=== PATIENT | male | born 1975 | race Caucasian/White ===

== ENCOUNTER → 2020-07-01 08:28 | Outpatient (POV) | payer OTHER, SELFPAY ==
[2020-07-01 10:40] LABS: Basophils % 0.3 % (0.1-2.0); Eosinophils % 0.1 % (0.1-12.0); Hematocrit 47.8 % (42.0-52.0); Hemoglobin 15.4 g/dL (14.1-18.0); Lymphocytes # 2.3 K/mm3 (0.7-4.5); Lymphocytes % 23.1 % (10-50); Mean Corpuscular HGB Conc 32.2 g/dL (31.8-35.4); Mean Corpuscular Hemoglobin 27.9 pg (27.0-31.2); Mean Corpuscular Volume 86.8 fl (80-94); Mean Platelet Volume 7.5 fl (7.4-10.4); Monocytes # 0.4 K/mm3 (0.1-1.0); Monocytes % 4.3 % (1.7-9.3); Neutrophils # 7.2 K/mm3 (1.8-7.8); Neutrophils % 72.2 % (37.0-80.0); Platelet Count 295 K/mm3 (142-424); Red Blood Count 5.51 M/mm3 (4.60-6.20); Red Cell Distribution Width 13.4 % (11.5-17.5); White Blood Count 9.9 K/mm3 (4.8-10.8)
[2020-07-01 10:50] LABS: Chloride 105 mmol/L (98-107)
[2020-07-01 10:51] LABS: Potassium 4.8 mmoL/L (3.5-5.1); Sodium 139 mmol/L (136-145)
[2020-07-01 10:53] LABS: Blood Urea Nitrogen 20 mg/dl (9-20); Estimated Glomerular Filt Rate 72 ml/min (>60); GFR (African American) 87 ML/MIN (>60)
[2020-07-01 10:54] LABS: Alanine Aminotransferase 30 U/L (12-78); Albumin/Globulin Ratio 1.8 (1.1-1.8); Alkaline Phosphatase 66 U/L (38-126); Anion Gap 10.8 mEq/L (5-15); Aspartate Amino Transferase 30 U/L (17-59); Bilirubin,Total 0.9 mg/dl (0.2-1.3); Calcium 10.3 mg/dl (8.4-10.2); Carbon Dioxide 28 mmol/L (22.0-30.0); Globulin 2.8 g/dL (1.3-3.2); Glucose 98 mg/dl (74-100); Iron 103 ug/dL (49-181); Total Protein,Serum 7.8 g/dl (6.3-8.2)
[2020-07-01 11:00] LABS: C-Reactive Protein 3.2 mg/L (0-4)
[2020-07-01 11:03] LABS: Total Iron Binding Capacity 337 ug/dL (261-462)
[2020-07-01 11:11] LABS: 25-OH Vitamin D, Total 28.3 ng/mL (30-100)
[2020-07-01 11:29] LABS: Ferritin 30.8 ng/ml (17.9-464)
[2020-07-01 12:30] LABS: Vitamin B12 895 pg/mL (239-931)
[2020-07-05 12:23] LABS: Calprotectin, Fecal 80 ug/g (0-120)
== END ==
PROVIDERS: Visit Provider Nurse Practitioner Family
DX: R10.11 Right upper quadrant pain (principal); K50.80 Crohn's disease of both small and large intestine without complications; K62.5 Hemorrhage of anus and rectum; R19.7 Diarrhea, unspecified; E55.9 Vitamin D deficiency, unspecified
CPT/HCPCS: 36415; 80053; 82306; 82607; 82728; 83540; 83550; 83993; 85025; 86140

== ENCOUNTER 2024-05-16 15:12 | Outpatient (CLI) | payer BC, SELFPAY ==
[2024-05-16 15:51] LABS: Basophils % 0.2 % (0.1-2.0); Hemoglobin 15.9 g/dL (14.1-18.0); Lymphocytes # 0.7 K/mm3 (0.7-4.5); Mean Corpuscular HGB Conc 33.1 g/dL (31.8-35.4); Mean Corpuscular Hemoglobin 28.2 pg (27.0-31.2); Mean Corpuscular Volume 85.3 fl (80-94); Mean Platelet Volume 10.1 fl (7.4-10.4); Monocytes # 0.1 K/mm3 (0.1-1.0); Monocytes % 0.6 % (1.7-9.3); Neutrophils # 8.2 K/mm3 (1.8-7.8); Platelet Count 317 K/mm3 (142-424); Red Blood Count 5.63 M/mm3 (4.60-6.20); Red Cell Distribution Width 13.1 % (11.5-17.5)
[2024-05-16 15:54] LABS: MANUAL DIFFERENTIAL MANUAL DIFFERENTIAL (MANUAL DIFF)
[2024-05-16 16:21] LABS: Erythrocyte Sedimentation Rate 1 mm/hr (0-15)
[2024-05-16 16:54] LABS: Albumin Level 4.8 g/dl (3.5-5.0); Chloride 101 mmol/L (98-107); Potassium 5.2 mmoL/L (3.5-5.1); Sodium 139 mmol/L (136-145)
[2024-05-16 16:55] LABS: Lymphocytes % 10 % (10-50); Neutrophils % 89 % (42-76); Platelet Estimate Normal; RBC Morphology Normal; Total Cells Counted 100
[2024-05-16 16:57] LABS: Alanine Aminotransferase 25 U/L (12-78); Alkaline Phosphatase 62 U/L (38-126); Anion Gap 13.2 mEq/L (5-15); Aspartate Amino Transferase 28 U/L (17-59); Bilirubin,Total 1.2 mg/dl (0.2-1.3); Blood Urea Nitrogen 24 mg/dl (9-20); Calcium 9.5 mg/dl (8.4-10.2); Carbon Dioxide 30 mmol/L (22.0-30.0); Estimated Glomerular Filt Rate 58 ml/min (>60); GFR (African American) 71 ML/MIN (>60); Globulin 2.4 g/dL (1.3-3.2); Glucose 112 mg/dl (74-100); Iron 171 ug/dL (49-181); Total Protein,Serum 7.2 g/dl (6.3-8.2)
[2024-05-16 17:05] LABS: C-Reactive Protein 17.1 mg/L (0-4)
[2024-05-16 17:07] LABS: Total Iron Binding Capacity 351 ug/dL (261-462)
[2024-05-16 17:34] LABS: Ferritin 32.4 ng/ml (17.9-464)
== END 2024-05-16 23:59 | disposition home or self-care (01) ==
PROVIDERS: PCP Internal Medicine; Visit Provider Internal Medicine Gastroenterology
DX: K50.012 Crohn's disease of small intestine with intestinal obstruction (principal); K74.69 Other cirrhosis of liver; B19.20 Unspecified viral hepatitis C without hepatic coma
CPT/HCPCS: 36415; 80053; 82728; 83540; 83550; 85007; 85025; 85027; 85651; 86140

== ENCOUNTER 2024-05-17 08:28 | Outpatient (CLI) | payer BC, SELFPAY ==
--- NOTE | 2024-05-17 08:33 | CT_ITS ---
FINAL REPORT TECHNIQUE: Thin section axial images are obtained through the abdomen and pelvis after intravenous contrast. Reconstruction images were obtained from the axial data. Enterography protocol was utilized. Exam was performed using dose reduction techniques. CLINICAL HISTORY: Crohn s disease with symptomatology partial obstru COMPARISON: None FINDINGS: LUNG BASES: Lung bases are clear. Heart size is normal. LIVER: There are few small hypodense liver lesions favored to represent very small cysts. GALLBLADDER/BILIARY SYSTEM: Gallbladder is present. No gallstones. No biliary dilatation. SPLEEN: Unremarkable. PANCREAS: Unremarkable. ADRENALS: Unremarkable. KIDNEYS/URETERS/BLADDER: Bilateral nonobstructing renal stones are noted. No renal mass. Nonobstructing 3 mm distal right ureteral stone. Unremarkable urinary bladder. GI TRACT: Postoperative changes in the right lower quadrant from resection of the terminal ileum and creation of a urmila TI. No small-bowel obstruction. No focal small bowel wall thickening. No evidence of active Crohn's disease within the small bowel. Appendix is absent. No acute colon abnormality. PELVIC ORGANS: Without acute abnormality. LYMPH NODES/RETROPERITONEUM/MESENTERY: No lymphadenopathy. No abdominal aortic aneurysm. ABDOMINAL WALL: The abdominal wall is intact. FREE FLUID: No ascites. BONES: No acute osseous abnormality. IMPRESSION: No evidence of small-bowel obstruction or convincing active Crohn's disease. Bilateral nonobstructing renal stones and nonobstructing distal right ureteral stone. Reviewed, Interpreted and Dictated by Jewels Myers MD Transcribed by Brandi Bartlett Authenticated and [facility]
[2024-05-17] MEDS: 0.9 % SODIUM CHLORIDE 50 ML VIAL 40 ML IV (11:19)
[2024-05-17] MEDS: SODIUM CHLORIDE 0.9% 10ML SYR (RAD ONLY) 10 ML IV (11:19)
[2024-05-17] MEDS: IOPAMIDOL-370 (76%);100ML BOTTLE 100 ML IV (11:19)
[2024-05-17] MEDS: BREEZA FLAVORED BEVERAGE 500ML BOTTLE (RAD USE ONLY) 1500 ML PO (11:22)
== END 2024-05-17 23:59 | disposition home or self-care (01) ==
PROVIDERS: PCP Internal Medicine; Visit Provider Internal Medicine Gastroenterology
DX: K50.012 Crohn's disease of small intestine with intestinal obstruction (principal)
CPT/HCPCS: 74177; Q9967